=== PATIENT | female | born 1985 | race African-American/Black ===

== ENCOUNTER 2017-09-12 19:07 | Emergency (ER) | payer MEDICAID ==
[~2017-09-12] VITALS: Ht 170.2 cm; Wt 118.4 kg
[~2017-09-12 19:07] MED LIST: IBUPROFEN600 MG ORAL; MACROBID100 MG ORAL; REGLAN10 MG ORAL; TRAMADOL HCL50 MG ORAL; ZOFRAN4 MG ORAL
[2017-09-12] MEDS ORDERED: Dicyclomine HCl 10mg/5ml oral soln ORAL ONE (19:15)
[2017-09-12] MEDS ORDERED: Lidocaine 2% Visc 15ml soln ORAL ONE (19:15)
[2017-09-12] MEDS ORDERED: Mylanta II UD 30ml ORAL ONE (19:15)
[2017-09-12 19:20] VITALS: BP 134/89
[2017-09-12] MEDS ORDERED: PEPCID40 MG PO (19:33)
--- NOTE | 2017-09-12 19:34 | Emergency Room Report ---
History of Present Illness General Chief Complaint: Chest Pain Source: Patient Present Illness HPI 32-year-old female with no sig pmhx p/w abdominal pain 2 days. Patient states pain started gradually, localized to epigastric area, radiating up toward chest, burning in nature, intermittent. No relieving or exacerbating factors. Severity is5/ 10. States she has nausea but no vomiting. No diarrhea Denies fever, chills. No hx of abdominal surgeries. No hx of endoscopies/colonoscopies. Patient states that she has been taking Motrin almost every day for the past several months, for a low grade headache Allergies: Coded Allergies: PENICILLINS (Unverified Allergy, Mild, 07/31/15) DIPHENHYDRAMINE (Verified Allergy, Unknown, 08/09/15) METOCLOPRAMIDE (Verified Allergy, Unknown, 08/09/15) Patient History Past Medical History: see triage record Past Surgical History: none Pertinent Family History: none Last Menstrual Period: last month Reviewed Nursing Documentation: PMH: Agreed, PSxH: Agreed Nursing Documentation-PMH Past Medical History: No Stated History Hx Hypertension: No Hx Gastrointestinal Problems: No - Cholecystectomy in 2010 Review of Systems All Other Systems: negative except mentioned in HPI Physical Exam Vital Signs Date Time Temp Pulse Resp B/P (MAP) Pulse Ox O2 Delivery O2 Flow Rate FiO2 09/12/17 19:11 99.7 78 16 134/89 98 Room Air Sp02 EP Interpretation: reviewed, normal General Appearance: alert, GCS 15, non-toxic, mild distress Head: normocephalic, atraumatic Eyes: bilateral eye normal inspection, bilateral eye PERRL, bilateral eye EOMI ENT: normal ENT inspection, normal pharynx, normal voice, moist mucus membranes Neck: normal inspection, full range of motion, supple Respiratory: normal inspection, lungs clear, normal breath sounds, no respiratory distress, no retraction, no wheezing, speaking full sentences, chest symmetrical Cardiovascular #1: normal inspection, regular rate, rhythm, normal capillary refill Cardiovascular #2: 2+ radial (R), 2+ radial (L) Gastrointestinal: soft, non-distended, no guarding, other - mild epigastric tenderness noguarding Musculoskeletal: normal inspection, back normal, normal range of motion, non- tender Neurologic: normal inspection, alert, oriented x3, responsive, motor strength/ tone normal, sensory intact, normal gait, speech normal Psychiatric: normal inspection, judgement/insight normal, memory normal Skin: normal inspection, normal color, no rash, warm/dry, well hydrated, normal turgor Medical Decision Making Diagnostic Impression: Primary Impression: Epigastric abdominal pain Additional Impressions: NSAID induced gastritis Trichomonas infection ER Course 32-year-old female with epigastric abdominal pain radiating up towards chest, chronic Motrin user Differential Diagnosis: Likely Gastritis versus peptic ulcer disease, appendicitis, UTI/pyelo Patient has history of cholecystectomy At this time abdomen is soft nontender, not likely have acute intra-abdominal surgical pathology, will hold CT Plan: Basic labs, ua, ekg Pepcid, maalox, pain control, IVF ER course: Patient has remained stable during ED stay. Pain improved. Repeat abdominal exam is nontender. Tolerating PO +trichomonas, 2gm flagyl PO given in ED Disposition: Patient is to be discharged to home. Prescriptions given are Pepcid Patient is instructed to follow up with their primary care doctor within 5 days. Patient is instructed to follow up with associate pathologist in one week Strict return precautions discussed with patient such as fever, chills, worsening/severe abdominal pain, nausea, vomiting, black or bloody stools, which may indicate severe illness. Patient verbalizes understanding and agrees with plan. Please note that this Emergency Department Report was dictated using The [employer] websitenc manager technology software, occasionally this can lead to erroneous entry secondary to interpretation by the dictation equipment EKG Diagnostic Results EP Interpretation: Yes Rate: normal Rhythm: NSR ST Segments: T wave inversion noted in lead 3 ASA given to patient: No Rhythm Strip EP Interpretation: Yes Rate: 84 Rhythm: NSR, no PVCs, no ectopy Chest X-ray CXR: Ordered: Yes 1 view Indication: Chest pain EP interpretation: Yes Interpretation: No consolidation, no effusion, no PTX, no acute cardiopulmonary disease Impression: No acute disease Electronically signed by Juan M Davis MD Laboratory Tests Test 09/12/17 19:25 09/12/17 19:38 White Blood Count 8.7 K/UL (4.8-10.8) Red Blood Count 4.70 M/UL (4.20-5.40) Hemoglobin 12.1 G/DL (12.0-16.0) Hematocrit 39.0 % (37.0-47.0) Mean Corpuscular Volume 83 FL (80-99) Mean Corpuscular Hemoglobin 25.8 PG (27.0-31.0) L Mean Corpuscular Hemoglobin Concent 31.0 G/DL (32.0-36.0) L Red Cell Distribution Width 13.7 % (11.6-14.8) Platelet Count 327 K/UL (150-450) Mean Platelet Volume 6.4 FL (6.5-10.1) L Neutrophils (%) (Auto) 58.6 % (45.0-75.0) Lymphocytes (%) (Auto) 32.6 % (20.0-45.0) Monocytes (%) (Auto) 6.6 % (1.0-10.0) Eosinophils (%) (Auto) 1.4 % (0.0-3.0) Basophils (%) (Auto) 0.9 % (0.0-2.0) Sodium Level 141 MMOL/L (136-145) Potassium Level 3.7 MMOL/L (3.5-5.1) Chloride Level 105 MMOL/L (98-107) Carbon Dioxide Level 29 MMOL/L (21-32) Anion Gap 7 mmol/L (5-15) Blood Urea Nitrogen 13 mg/dL (7-18) Creatinine 1.0 MG/DL (0.55-1.30) Estimate Glomerular Filtration Rate > 60 mL/min (>60) Glucose Level 103 MG/DL (74-106) Calcium Level 9.0 MG/DL (8.5-10.1) Total Bilirubin 0.1 MG/DL (0.2-1.0) L Aspartate Amino Transferase (AST) 15 U/L (15-37) Alanine Aminotransferase (ALT) 19 U/L (12-78) Alkaline Phosphatase 103 U/L (46-116) Total Protein 7.0 G/DL (6.4-8.2) Albumin 2.8 G/DL (3.4-5.0) L Globulin 4.2 g/dL Albumin/Globulin Ratio 0.7 (1.0-2.7) L Lipase 137 U/L (73-393) Urine Color Pale yellow Urine Appearance Clear Urine pH 6.5 (4.5-8.0) Urine Specific [place] 1.015 (1.005-1.035) Urine Protein Negative (NEGATIVE) Urine Glucose (UA) Negative (NEGATIVE) Urine Ketones Negative (NEGATIVE) Urine Occult Blood Negative (NEGATIVE) Urine Nitrite Negative (NEGATIVE) Urine Bilirubin Negative (NEGATIVE) Urine Urobilinogen Normal MG/DL (0.0-1.0) Urine Leukocyte Esterase 3+ (NEGATIVE) H Urine RBC 2-4 /HPF (0 - 2) H Urine WBC 5-10 /HPF (0 - 2) H Urine Squamous Epithelial Cells Few /LPF (NONE/OCC) Urine Bacteria Moderate /HPF (NONE) H Urine Trichomonas Few /HPF (NONE) H Urine HCG, Qualitative Negative Last Vital Signs Date Time Temp Pulse Resp B/P (MAP) Pulse Ox O2 Delivery O2 Flow Rate FiO2 09/12/17 19:11 99.7 78 16 134/89 98 Room Air Disposition: HOME, SELF-CARE Condition: Improved Scripts Famotidine (PEPCID) 40 Mg Tablet 40 MG PO DAILY for 14 Days, #14 TAB 0 Refills Prov: Juan M Davis M.D. 09/12/17 Patient Instructions: Gastritis, Adult, [id number], Nonspecific Chest Pain Juan M Davis M.D. Sep 12, 2017 19:34
[2017-09-12 19:56] LABS: BASOPHILS % (AUTO) 0.9 % (0.0-2.0); EOSINOPHILS % (AUTO) 1.4 % (0.0-3.0); LYMPHOCYTES % (AUTO) 32.6 % (20.0-45.0); MEAN CORPUSCULAR HEMOGLOBIN 25.8 PG (27.0-31.0); MEAN CORPUSCULAR VOLUME 83 FL (80-99); MEAN PLATELET VOLUME 6.4 FL (6.5-10.1); MONOCYTES % (AUTO) 6.6 % (1.0-10.0); NEUTROPHILS % (AUTO) 58.6 % (45.0-75.0); PLATELET COUNT 327 K/UL (150-450); RED CELL DISTRIBUTION WIDTH 13.7 % (11.6-14.8); WHITE BLOOD COUNT 8.7 K/UL (4.8-10.8)
[2017-09-12 20:08] LABS: APPEARANCE,URINE CLEAR; KETONES,URINE NEGATIVE (NEGATIVE); LEUKOCYTE ESTERASE ,URINE 3+ (NEGATIVE); NITRITE,URINE NEGATIVE (NEGATIVE); PH,URINE 6.5 (4.5-8.0); PROTEIN,URINE NEGATIVE (NEGATIVE); UROBILINOGEN,URINE NORMAL MG/DL (0.0-1.0)
[2017-09-12 20:29] LABS: BACTERIA,URINE MODERATE /HPF; SQUAMOUS EPITHELIAL CELL,UR FEW /LPF (NONE/OCC); TRICHOMONAS,URINE FEW /HPF
[2017-09-12 20:32] LABS: ANION GAP 7 mmol/L (5-15); CARBON DIOXIDE 29 MMOL/L (21-32); CHLORIDE 105 MMOL/L (98-107); GLOMERULAR FILTRATION RATE > 60 mL/min (>60); POTASSIUM 3.7 MMOL/L (3.5-5.1); SODIUM 141 MMOL/L (136-145)
[2017-09-12 20:38] LABS: ALANINE AMINOTRANSFERASE 19 U/L (12-78); ALBUMIN/GLOBULIN RATIO 0.7 (1.0-2.7); ASPARTATE AMINO TRANSFERASE 15 U/L (15-37); LIPASE 137 U/L (73-393)
[2017-09-12 21:00] VITALS: BP 127/88
[2017-09-12] MEDS ORDERED: metroNIDAZOLE 500mg tab ORAL ONE (21:00)
--- NOTE | 2017-09-13 11:19 | Diagnostic Imaging Report ---
Indication: PAIN Technique: One view of the chest Comparison: none Findings: Lungs and pleural spaces are clear. Heart size is upper limits normal. Impression: No acute process
--- NOTE | 2017-09-14 18:28 | Cardiology Report ---
APPROVED REPORT EKG Measurement Heart [id number] HI [id number] Normal sinus rhythm Possible Anterior infarct, age undetermined Abnormal ECG
== END 2017-09-12 21:10 | disposition home or self-care (01) ==
LOC: EDBD 19:07 → EMR 19:15
DX: K29.70 Gastritis, unspecified, without bleeding (principal); A59.9 Trichomoniasis, unspecified; Z90.49 Acquired absence of other specified parts of digestive tract; Z88.8 Allergy status to other drugs, medicaments and biological substances
CPT/HCPCS: 36415; 71010; 80053; 81003; 81025; 83690; 85025; 87086; 93005; 96361; 96374; 96375; 99284; J2405; S0028

== ENCOUNTER 2018-08-18 09:13 | Emergency (ER) | payer MEDICAID ==
[~2018-08-18] VITALS: Ht 162.6 cm; Wt 90.7 kg
[~2018-08-18 09:13] MED LIST changes: +PEPCID40 MG PO
[2018-08-18 09:15] VITALS: BP 119/70
[2018-08-18] MEDS ORDERED: Morphine Sulfate 4mg/ml Inj (IV/IM USE ONLY) IVP ONE (09:30)
[2018-08-18 10:03] LABS: BASOPHILS % (AUTO) 0.8 % (0.0-2.0); EOSINOPHILS % (AUTO) 1.7 % (0.0-3.0); HEMATOCRIT 39.1 % (37.0-47.0); HEMOGLOBIN 12.8 G/DL (12.0-16.0); LYMPHOCYTES % (AUTO) 32.1 % (20.0-45.0); MEAN CORPUSCULAR VOLUME 80 FL (80-99); MONOCYTES % (AUTO) 6.1 % (1.0-10.0); NEUTROPHILS % (AUTO) 59.3 % (45.0-75.0); PLATELET COUNT 298 K/UL (150-450); RED BLOOD COUNT 4.86 M/UL (4.20-5.40); RED CELL DISTRIBUTION WIDTH 13.6 % (11.6-14.8); WHITE BLOOD COUNT 5.8 K/UL (4.8-10.8)
[2018-08-18 10:18] LABS: ANION GAP 7 mmol/L (5-15); BLOOD UREA NITROGEN 10 mg/dL (7-18); CALCIUM 9.3 MG/DL (8.5-10.1); CARBON DIOXIDE 28 MMOL/L (21-32); CHLORIDE 106 MMOL/L (98-107); POTASSIUM 3.4 MMOL/L (3.5-5.1); SODIUM 141 MMOL/L (136-145)
--- NOTE | 2018-08-18 10:21 | Emergency Room Report ---
History of Present Illness General Chief Complaint: Abdominal Pain Source: Patient, EMS Present Illness HPI Patient complains about severe epigastric pain. This began earlier today. She states been vomiting also. Pain is constant and burning. It's greater than 10/ 10. She's had this pain before but refuses to answer many questions. Pain "severe" refuses to give number. She's been vomiting intermittently for several days. Sig other is concerned if . Fidelina 2010 Renal stones Allergies: Coded Allergies: PENICILLINS (Unverified Allergy, Mild, 07/31/15) DIPHENHYDRAMINE (Verified Allergy, Unknown, 08/09/15) METOCLOPRAMIDE (Verified Allergy, Unknown, 08/09/15) Patient History Past Medical History: see triage record Past Surgical History: fidelina Social History: Reports: smoking Social History Narrative with sig other and daughter Last Menstrual Period: 08/03/18 Reviewed Nursing Documentation: PMH: Agreed; PSxH: Agreed Nursing Documentation-PMH Past Medical History: No History, Except For Hx Hypertension: No Hx Gastrointestinal Problems: No - Cholecystectomy in 2010, hx of kidney stone Review of Systems All Other Systems: negative except mentioned in HPI Physical Exam Vital Signs Date Time Temp Pulse Resp B/P (MAP) Pulse Ox O2 Delivery O2 Flow Rate FiO2 08/18/18 09:12 98.6 90 18 123/86 98 Room Air Sp02 EP Interpretation: reviewed, normal General Appearance: GCS 15, mild distress, obese Head: normocephalic Eyes: bilateral eye normal inspection, bilateral eye PERRL ENT: moist mucus membranes Neck: supple Respiratory: lungs clear, normal breath sounds Cardiovascular #1: regular rate, rhythm Cardiovascular #2: 2+ radial (R) Gastrointestinal: other - patient refuses to lay on back and is not allowing exam of abdomen Genitourinary: no CVA tenderness Musculoskeletal: back normal, normal range of motion Neurologic: alert, oriented x3, grossly normal Psychiatric: other - refusing exam due to pain Skin: normal inspection, warm/dry Medical Decision Making Diagnostic Impression: Primary Impression: Gastritis Qualified Codes: K29.00 - Acute gastritis without bleeding ER Course Patient with epigastric pain and vomiting. DDX: GItis, gastritis, GERD, pancreatitis amongst others. Post fidelina so doubt gall bladder problem. Evaluation with labs and films. Treatment with IV hydration and analgesics. She doubts , but will check. Difficult as not allowing exam. Refused CXR. Discussed and then allowed. Labs with normal WBC, H/H. CMP normal with min low K. UA clear with neg preg. CXR no free air, normal. Repeat exam improved. Now able to examine. Soft and no guarding. Discussed need for outpatient follow up. Patient stable for outpatient observation and treatment. Laboratory Tests Test 08/18/18 09:40 08/18/18 09:50 08/18/18 10:55 White Blood Count 5.8 K/UL (4.8-10.8) Red Blood Count 4.86 M/UL (4.20-5.40) Hemoglobin 12.8 G/DL (12.0-16.0) Hematocrit 39.1 % (37.0-47.0) Mean Corpuscular Volume 80 FL (80-99) Mean Corpuscular Hemoglobin 26.4 PG (27.0-31.0) L Mean Corpuscular Hemoglobin Concent 32.8 G/DL (32.0-36.0) Red Cell Distribution Width 13.6 % (11.6-14.8) Platelet Count 298 K/UL (150-450) Mean Platelet Volume 5.8 FL (6.5-10.1) L Neutrophils (%) (Auto) 59.3 % (45.0-75.0) Lymphocytes (%) (Auto) 32.1 % (20.0-45.0) Monocytes (%) (Auto) 6.1 % (1.0-10.0) Eosinophils (%) (Auto) 1.7 % (0.0-3.0) Basophils (%) (Auto) 0.8 % (0.0-2.0) Sodium Level 141 MMOL/L (136-145) Potassium Level 3.4 MMOL/L (3.5-5.1) L Chloride Level 106 MMOL/L (98-107) Carbon Dioxide Level 28 MMOL/L (21-32) Anion Gap 7 mmol/L (5-15) Blood Urea Nitrogen 10 mg/dL (7-18) Creatinine 1.0 MG/DL (0.55-1.30) Estimate Glomerular Filtration Rate > 60 mL/min (>60) Glucose Level 89 MG/DL (74-106) Calcium Level 9.3 MG/DL (8.5-10.1) Total Bilirubin 0.3 MG/DL (0.2-1.0) Aspartate Amino Transferase (AST) 19 U/L (15-37) Alanine Aminotransferase (ALT) 25 U/L (12-78) Alkaline Phosphatase 106 U/L (46-116) Total Protein 7.3 G/DL (6.4-8.2) Albumin 3.1 G/DL (3.4-5.0) L Globulin 4.2 g/dL Albumin/Globulin Ratio 0.7 (1.0-2.7) L Lipase 93 U/L (73-393) Prothrombin Time 10.5 SEC (9.30-11.50) Prothrombin Time INR 1.0 (0.9-1.1) PTT 29 SEC (23-33) Urine Color Pale yellow Urine Appearance Clear Urine pH 7 (4.5-8.0) Urine Specific [place] 1.005 (1.005-1.035) Urine Protein Negative (NEGATIVE) Urine Glucose (UA) Negative (NEGATIVE) Urine Ketones Negative (NEGATIVE) Urine Blood Negative (NEGATIVE) Urine Nitrite Negative (NEGATIVE) Urine Bilirubin Negative (NEGATIVE) Urine Urobilinogen Normal MG/DL (0.0-1.0) Urine Leukocyte Esterase Negative (NEGATIVE) Urine HCG, Qualitative Negative (NEGATIVE) Chest X-Ray Diagnostic Results Chest X-Ray Diagnostic Results : Chest X-Ray Ordered: Yes # of Views/Limited/Complete: 1 View Indication: Other Interpretation: no consolidation, no effusion, no pneumothorax Impression: No acute disease Electronically Signed by: Farhat Mccurdy MD Last Vital Signs Date Time Temp Pulse Resp B/P (MAP) Pulse Ox O2 Delivery O2 Flow Rate FiO2 08/18/18 13:52 98.9 72 18 119/70 100 Room Air Status: improved Disposition: HOME, SELF-CARE Condition: Improved Scripts Acetaminophen (Tylenol) 325 Mg Tablet 650 MG ORAL Q6H PRN for Prn Pain/Headache/Temp > 101, #20 TAB 0 Refills Prov: Farhat Mccurdy MD 08/18/18 Famotidine (PEPCID AC) 20 Mg Tablet 20 MG PO DAILY, #30 TAB Prov: Farhat Mccurdy MD 08/18/18 Ondansetron Odt* (ZOFRAN ODT*) 4 Mg Tab.rapdis 4 MG BC EVERY 8 HOURS, #10 TAB 0 Refills Prov: Farhat Mccurdy MD 08/18/18 Tramadol Hcl* (ULTRAM*) 50 Mg Tablet 50 MG ORAL Q6H PRN for For Pain, #12 TAB 0 Refills Prov: Farhat Mccurdy MD 08/18/18 Referrals: [facility]ERR[facility] (PCP) Farhat Mccurdy MD Aug 18, 2018 10:21
[2018-08-18 10:22] LABS: ALANINE AMINOTRANSFERASE 25 U/L (12-78); ALBUMIN 3.1 G/DL (3.4-5.0); ALBUMIN/GLOBULIN RATIO 0.7 (1.0-2.7); ALKALINE PHOSPHATASE 106 U/L (46-116); ASPARTATE AMINO TRANSFERASE 19 U/L (15-37); BILIRUBIN,TOTAL 0.3 MG/DL (0.2-1.0)
--- NOTE | 2018-08-18 10:55 | Diagnostic Imaging Report ---
Indication: Dyspnea Comparison: 09/12/2017 A single view chest radiograph was obtained. Findings: Cardiomediastinal appearance is within normal limits for age. The lungs are clear. Pulmonary vascularity is appropriate. The diaphragmatic contour is smooth and costophrenic angles are sharp. No pleural effusions are identified. The bones are unremarkable. Impression: No acute findings
[2018-08-18 11:30] LABS: APPEARANCE,URINE CLEAR; BILIRUBIN, URINE NEGATIVE (NEGATIVE); COLOR,URINE PALE YELLOW; GLUCOSE, URINE (UA) NEGATIVE (NEGATIVE); KETONES,URINE NEGATIVE (NEGATIVE); LEUKOCYTE ESTERASE ,URINE NEGATIVE (NEGATIVE); NITRITE,URINE NEGATIVE (NEGATIVE); PH,URINE 7 (4.5-8.0); PROTEIN,URINE NEGATIVE (NEGATIVE); UROBILINOGEN,URINE NORMAL MG/DL (0.0-1.0)
[2018-08-18 12:00] VITALS: BP 121/78
[2018-08-18] MEDS ORDERED: oxyCODONE HCL/Acetaminophen 5/325mg ORAL ONE (13:45)
[2018-08-18] MEDS ORDERED: TYLENOL325 MG ORAL (13:46)
[2018-08-18] MEDS ORDERED: ONDANSETRON ODT4 MG BC (13:46)
[2018-08-18] MEDS ORDERED: PEPCID AC20 M2 PO (13:46)
[2018-08-18] MEDS ORDERED: TRAMADOL HCL50 MG ORAL (13:46)
[2018-08-18 13:51] VITALS: BP 115/82
[2018-08-18 13:52] VITALS: BP 119/70
== END 2018-08-18 13:52 | disposition home or self-care (01) ==
LOC: EDBD 09:13 → EMR 09:22
DX: K29.70 Gastritis, unspecified, without bleeding (principal); Z88.0 Allergy status to penicillin; Z88.8 Allergy status to other drugs, medicaments and biological substances; Z90.49 Acquired absence of other specified parts of digestive tract
CPT/HCPCS: 36415; 71045; 80053; 81003; 81025; 83690; 85025; 85610; 85730; 96361; 96374; 96375; 99284; J2270; J2405; S0028

== ENCOUNTER 2018-09-01 21:23 | Emergency (ER) | payer MEDICAID ==
[~2018-09-01] VITALS: Ht 170.2 cm; Wt 119.7 kg
[~2018-09-01 21:23] MED LIST changes: +ONDANSETRON ODT4 MG BC; +PEPCID AC20 M2 PO; +TYLENOL325 MG ORAL
[2018-09-01 23:00] LABS: APPEARANCE,URINE CLEAR; BILIRUBIN, URINE NEGATIVE (NEGATIVE); GLUCOSE, URINE (UA) NEGATIVE (NEGATIVE); KETONES,URINE NEGATIVE (NEGATIVE); LEUKOCYTE ESTERASE ,URINE 3+ (NEGATIVE); NITRITE,URINE NEGATIVE (NEGATIVE); PH,URINE 6 (4.5-8.0); PROTEIN,URINE NEGATIVE (NEGATIVE); UROBILINOGEN,URINE NORMAL MG/DL (0.0-1.0)
[2018-09-01 23:00] LABS: BASOPHILS % (AUTO) 1.7 % (0.0-2.0); EOSINOPHILS % (AUTO) 2.3 % (0.0-3.0); HEMATOCRIT 38.7 % (37.0-47.0); HEMOGLOBIN 12.5 G/DL (12.0-16.0); MEAN CORPUSCULAR VOLUME 81 FL (80-99); MONOCYTES % (AUTO) 6.2 % (1.0-10.0); NEUTROPHILS % (AUTO) 56.8 % (45.0-75.0); PLATELET COUNT 295 K/UL (150-450); RED BLOOD COUNT 4.79 M/UL (4.20-5.40); RED CELL DISTRIBUTION WIDTH 13.4 % (11.6-14.8); WHITE BLOOD COUNT 8.4 K/UL (4.8-10.8)
[2018-09-01 23:02] LABS: COLOR,URINE YELLOW
[2018-09-01 23:04] LABS: ANION GAP 7 mmol/L (5-15); BLOOD UREA NITROGEN 11 mg/dL (7-18); CARBON DIOXIDE 28 MMOL/L (21-32); CHLORIDE 106 MMOL/L (98-107); POTASSIUM 3.6 MMOL/L (3.5-5.1); SODIUM 141 MMOL/L (136-145)
[2018-09-01 23:15] VITALS: BP 132/88
[2018-09-01] MEDS ORDERED: ZOFRAN4 MG ORAL (23:30)
[2018-09-01] MEDS ORDERED: LEVOFLOXACIN500 MG ORAL (23:30)
--- NOTE | 2018-09-01 23:31 | Emergency Room Report ---
History of Present Illness General Chief Complaint: Female Urogenital Problems Source: Patient Present Illness HPI Is a 33-year-old female with with no mass medical history. She presents with chief complaint of vomiting and coughing. She says she been sick on and off for a month. But the coughing started again in the last couple days. No fever chills but felt nauseous. Also with vaginal bleeding. Denies any other complaint. Pain is epigastric in nature. 7 out of 10. In. Nothing made it better. Nothing made it worse. Allergies: Coded Allergies: PENICILLINS (Unverified Allergy, Mild, 07/31/15) DIPHENHYDRAMINE (Verified Allergy, Unknown, 08/09/15) METOCLOPRAMIDE (Verified Allergy, Unknown, 08/09/15) Patient History Past Medical History: see triage record, old chart reviewed Past Surgical History: other Pertinent Family History: none Social History: Denies: smoking Last Menstrual Period: 08/03/18 Now: No : 1 Para: 0 Reviewed Nursing Documentation: PMH: Agreed; PSxH: Agreed Nursing Documentation-PMH Past Medical History: No History, Except For Hx Hypertension: No Hx Gastrointestinal Problems: No - Cholecystectomy in 2010, hx of kidney stone Review of Systems Eye: Denies: eye pain, blurred vision ENT: Denies: ear pain, nose congestion, throat swelling Respiratory: Reports: cough; Denies: shortness of breath Cardiovascular: Denies: chest pain, palpitations Gastrointestinal: Reports: nausea, vomiting; Denies: abdominal pain, diarrhea Musculoskeletal: Denies: back pain, joint pain Skin: Denies: rash Neurological: Denies: headache, numbness Endocrine: Denies: increased thirst, increased urine Hematologic/Lymphatic: Denies: easy bruising All Other Systems: negative except mentioned in HPI Physical Exam Vital Signs Date Time Temp Pulse Resp B/P (MAP) Pulse Ox O2 Delivery O2 Flow Rate FiO2 09/01/18 21:35 98.2 86 17 141/94 99 Room Air vitals normal Sp02 EP Interpretation: reviewed, normal General Appearance: well appearing, no apparent distress, alert Head: normocephalic, atraumatic Eyes: bilateral eye PERRL, bilateral eye EOMI ENT: hearing grossly normal, normal pharynx Neck: full range of motion, supple, no meningismus Respiratory: chest non-tender, lungs clear, normal breath sounds Cardiovascular #1: regular rate, rhythm, no murmur Gastrointestinal: normal bowel sounds, non tender, no mass, no organomegaly, no bruit, non-distended Musculoskeletal: back normal, gait/station normal, normal range of motion Psychiatric: mood/affect normal Skin: warm/dry Medical Decision Making Diagnostic Impression: Primary Impression: UTI (urinary tract infection) Qualified Codes: N30.00 - Acute cystitis without hematuria Additional Impressions: Vomiting Qualified Codes: R11.2 - Nausea with vomiting, unspecified Bronchitis ER Course Shunt with vomiting here. Better after Zofran. No evidence of dehydration. No evidence of acute abdomen. She's eating drinking here. Last Vital Signs Date Time Temp Pulse Resp B/P (MAP) Pulse Ox O2 Delivery O2 Flow Rate FiO2 09/01/18 21:35 98.2 86 17 141/94 99 Room Air Status: improved Disposition: HOME, SELF-CARE Condition: Stable Scripts Levofloxacin (LEVOFLOXACIN*) 500 Mg Tablet 500 MG ORAL DAILY, #7 TAB Prov: Cy Mayberry MD 09/01/18 Referrals: [facility]ERR[facility] (PCP) Patient Instructions: Urinary Tract Infection Additional Instructions: Follow-up with your doctor in 7 days. Return of worse. Cy Mayberry MD Sep 01, 2018 23:31
[2018-09-01 23:35] VITALS: BP 132/88
== END 2018-09-01 23:35 | disposition home or self-care (01) ==
LOC: EMR 22:38
DX: N30.00 Acute cystitis without hematuria (principal); R11.2 Nausea with vomiting, unspecified; J20.9 Acute bronchitis, unspecified; Z88.0 Allergy status to penicillin; Z88.8 Allergy status to other drugs, medicaments and biological substances; Z90.49 Acquired absence of other specified parts of digestive tract; Z87.442 Personal history of urinary calculi
CPT/HCPCS: 36415; 80048; 81001; 81025; 85025; 87086; 96360; 99284

== ENCOUNTER 2018-10-11 02:14 | Emergency (ER) | payer MEDICAID ==
[~2018-10-11] VITALS: Ht 170.2 cm; Wt 136.1 kg
[2018-10-11 02:14] VITALS: BP 135/91
[~2018-10-11 02:14] MED LIST changes: +LEVOFLOXACIN500 MG ORAL
--- NOTE | 2018-10-11 02:18 | Emergency Room Report ---
History of Present Illness General Chief Complaint: Laceration Source: Patient, Medical Record Present Illness HPI She is a 33-year-old female presented after increased left wrist pain. Patient states that she pushed a glass window. She reports having increased pain to the left wrist. She states that she noticed increased bleeding. Patient was brought in by EMS.The injury occurred just prior to arrival. She denies any numbness to her hand.Patient states that she is right-hand dominant. Patient states she works as a [employer]. Allergies: Coded Allergies: PENICILLINS (Unverified Allergy, Mild, 07/31/15) DIPHENHYDRAMINE (Verified Allergy, Unknown, 08/09/15) METOCLOPRAMIDE (Verified Allergy, Unknown, 08/09/15) Patient History Past Medical History: see triage record Last Menstrual Period: n/a Reviewed Nursing Documentation: PMH: Agreed; PSxH: Agreed Nursing Documentation-PMH Past Medical History: No History, Except For Hx Hypertension: No Hx Gastrointestinal Problems: No - Cholecystectomy in 2010, hx of kidney stone Review of Systems All Other Systems: negative except mentioned in HPI Physical Exam Vital Signs Date Time Temp Pulse Resp B/P (MAP) Pulse Ox O2 Delivery O2 Flow Rate FiO2 10/11/18 02:09 98.2 83 15 135/91 100 Room Air General Appearance: well appearing, no apparent distress, alert, GCS 15, non- toxic Head: normocephalic, atraumatic ENT: hearing grossly normal, normal voice Neck: full range of motion, supple Respiratory: lungs clear, no respiratory distress, speaking full sentences Cardiovascular #1: normal inspection Gastrointestinal: normal inspection Musculoskeletal: normal inspection, other - normal hand movement, no active bleeding Neurologic: normal inspection, alert, oriented x3, normal gait Psychiatric: mood/affect normal Skin: no rash, laceration - left volar wrist Procedures Laceration/Wound Repair Laceration/Wound Repair : Consent: Emergent Wound Location: upper extremity Wound's Depth, Shape: superficial Wound Length (cm): 2 Wound Explored: clean Irrigated w/ Saline (ccs): 20 Betadine Prep?: Yes Anesthesia: Lidocaine w/ Epi Volume Anesthetic (ccs): 4 Wound Repaired With: sutures Suture Size/Type: 4:0 Number of Sutures: 6 Patient Tolerated: Well Complications: None Medical Decision Making Diagnostic Impression: Primary Impression: Laceration of wrist ER Course Patient presented for laceration. Differential diagnoses included foreign body , nerve injury, arterial injury among others. X-ray imaging of the left wrist 2 views interpreted by me showed normal bony alignment without evident fracture or foreign body. Patient's injury is over her left radial artery however there does not appear to be any pulsatile bleeding. patient's wound was irrigated. The wound was closed with absorbable suture. Patient was advised to have wound check in 2-3 days. Labs Test 10/11/18 03:00 Urine HCG, Qualitative Negative (NEGATIVE) Last Vital Signs Date Time Temp Pulse Resp B/P (MAP) Pulse Ox O2 Delivery O2 Flow Rate FiO2 10/11/18 02:09 98.2 83 15 135/91 100 Room Air Status: improved Disposition: HOME, SELF-CARE Condition: Stable Scripts Bacitracin Zinc* (BACITRACIN ZINC*) 1 Each Packet 1 APPLIC TOPIC THREE TIMES A DAY, #20 PACKET Prov: Rafa Paz MD 10/11/18 Ibuprofen* (MOTRIN*) 600 Mg Tablet 600 MG ORAL Q8H PRN for For Pain, #30 TAB 0 Refills Prov: Rafa Paz MD 10/11/18 Rafa Paz MD Oct 11, 2018 02:18
[2018-10-11] MEDS ORDERED: NKM (02:25)
[2018-10-11] MEDS: Lidocaine 1% 10mg/ml/Epi 0.005mg/ml 30ml vial INJ ONE (02:41)
[2018-10-11] MEDS ORDERED: IBUPROFEN600 MG ORAL (03:19)
[2018-10-11] MEDS ORDERED: BACITRACIN ZIN1 EACH TOPIC (03:19)
[2018-10-11] MEDS: Bacitracin Oint UD TOPIC ONE (03:29)
[2018-10-11] MEDS: Tetanus/Diptheria/Pertussis Vaccine 0.5ml Syr IM ONE (03:31)
[2018-10-11 03:48] VITALS: BP 131/89
--- NOTE | 2018-10-11 05:42 | Diagnostic Imaging Report ---
EXAM: XR Left Wrist Complete, 3 or More Views CLINICAL HISTORY: FB TECHNIQUE: Frontal, lateral and oblique views of the left wrist. COMPARISON: No relevant prior studies available. FINDINGS: Bones/joints: Unremarkable. No acute fracture. No dislocation. Soft tissues: No radiopaque foreign object. IMPRESSION: No radiopaque foreign object
== END 2018-10-11 03:48 | disposition home or self-care (01) ==
LOC: EDBD 02:14 → EMR 02:24
DX: S61.512A Laceration without foreign body of left wrist, initial encounter (principal); W25.XXXA Contact with sharp glass, initial encounter; Y92.89 Other specified places as the place of occurrence of the external cause; Z88.0 Allergy status to penicillin; Z88.8 Allergy status to other drugs, medicaments and biological substances; Z23 Encounter for immunization
CPT/HCPCS: 12001; 73100; 81025; 90471; 90715; 99283; Z7502

== ENCOUNTER 2019-07-13 12:57 | Emergency (ER) | payer MEDICAID ==
[~2019-07-13] VITALS: Ht 167.6 cm; Wt 104.3 kg
[~2019-07-13 12:57] MED LIST changes: +BACITRACIN ZIN1 EACH TOPIC; +NKM
[2019-07-13] MEDS ORDERED: Isovue-300 100ml vial INJ PRN (13:00)
[2019-07-13] MEDS ORDERED: Morphine Sulfate 2mg/ml Inj(IV/IM USE ONLY) IVP ONE (13:15)
--- NOTE | 2019-07-13 13:30 | NUR ---
ED Nurse Note: Patient was brought in by [id number]. Patient complaining of right lower quadrant pain. Patinet stated that shes nauseated but no vomiting. Abdomen soft with no tenderness noted. No distention noted. Bowel sounds presents in all quadrants. Pain when palpating. Bowel sounds present in all quadrant.
--- NOTE | 2019-07-13 13:40 | NUR ---
ED Nurse Note: Patient unable to provide urine sample and ok to use straight catheter at this time. RN performed straight I&O catheter and collected yellow urine. No visible blood noted. Patient tolerated the procedure without difficulty. Provided comfort measure. Bed in lowest position.
[2019-07-13 13:42] LABS: BASOPHILS % (AUTO) 1.3 % (0.0-2.0); HEMATOCRIT 40.1 % (37.0-47.0); HEMOGLOBIN 12.7 G/DL (12.0-16.0); LYMPHOCYTES % (AUTO) 40.4 % (20.0-45.0); MEAN CORPUSCULAR VOLUME 82 FL (80-99); MONOCYTES % (AUTO) 6.4 % (1.0-10.0); PLATELET COUNT 310 K/UL (150-450); RED BLOOD COUNT 4.86 M/UL (4.20-5.40); RED CELL DISTRIBUTION WIDTH 14.2 % (11.6-14.8)
[2019-07-13 13:48] LABS: APPEARANCE,URINE CLEAR; BILIRUBIN, URINE NEGATIVE (NEGATIVE); COLOR,URINE PALE YELLOW; GLUCOSE, URINE (UA) NEGATIVE (NEGATIVE); KETONES,URINE NEGATIVE (NEGATIVE); LEUKOCYTE ESTERASE ,URINE NEGATIVE (NEGATIVE); NITRITE,URINE NEGATIVE (NEGATIVE); PH,URINE 8 (4.5-8.0); PROTEIN,URINE NEGATIVE (NEGATIVE); UROBILINOGEN,URINE NORMAL MG/DL (0.0-1.0)
[2019-07-13] MEDS ORDERED: ACYCLOVIR400 MG ORAL (13:49)
--- NOTE | 2019-07-13 13:50 | NUR ---
ER DISCHARGE NOTE: Patient is cleared to be discharged per ERMD, pt is aox4, on room air, with stable vital signs. pt was given dc and prescription instructions, pt was able to verbalize understanding, pt id band and iv site removed without complications. pt is able to ambulate with steady gait. pt took all belongings.
[2019-07-13 13:54] LABS: ALANINE AMINOTRANSFERASE 18 U/L (12-78); ALBUMIN 3.1 G/DL (3.4-5.0); ALBUMIN/GLOBULIN RATIO 0.8 (1.0-2.7); ALKALINE PHOSPHATASE 101 U/L (46-116); ANION GAP 6 mmol/L (5-15); ASPARTATE AMINO TRANSFERASE 24 U/L (15-37); BILIRUBIN,TOTAL 0.5 MG/DL (0.2-1.0); BLOOD UREA NITROGEN 9 mg/dL (7-18); CALCIUM 9.1 MG/DL (8.5-10.1); CARBON DIOXIDE 29 MMOL/L (21-32); CHLORIDE 107 MMOL/L (98-107); CREATININE 0.8 MG/DL (0.55-1.30); SODIUM 142 MMOL/L (136-145)
[2019-07-13 13:57] LABS: POTASSIUM 4.1 MMOL/L (3.5-5.1)
--- NOTE | 2019-07-13 14:12 | NUR ---
ED Nurse Note: Patient taken to CT scan in wheelchair.
--- NOTE | 2019-07-13 14:28 | NUR ---
ED Nurse Note: Patient returned from CT scan. Patient in bed, bed in lowest position. IV site to left hand remained intact without swelling, redness or pain.
--- NOTE | 2019-07-13 14:50 | Diagnostic Imaging Report ---
Indication: Chest pain Technique: One view of the chest Comparison: 08/18/2018 Findings: Lungs and pleural spaces are clear. Heart size is normal. No significant change Impression: No acute process
--- NOTE | 2019-07-13 15:29 | Diagnostic Imaging Report ---
Clinical Indication: Abdominal pain Technique: No oral contrast utilized, per emergency room physician request IV administration nonionic contrast. Venous phase spiral acquisition obtained through the abdomen and pelvis. Multiplanar reconstructions were generated. Total dose length product 2026 mGycm. CTDIvol(s) 34 mGy. Dose reduction achieved using automated exposure control Comparison: 07/26/2015 Findings: There is otherwise limits evaluation. The appendix is not definitely visualized, but no findings to suggest acute appendicitis are evident. No evidence of diverticulosis or diverticulitis. No small bowel distention. No free or loculated intraperitoneal gas or fluid. Distal esophagus, stomach, duodenum are unremarkable. There is evidence of prior cholecystectomy. The liver, pancreas, spleen, adrenals, kidneys are unremarkable. No pelvic mass or adenopathy. Minimal linear scarring is seen at the left lung base. The bones are unremarkable. Impression: No definite acute or significant abnormality Evidence of prior cholecystectomy The CT scanner at [facility] is accredited by the [employer] and the scans are performed using protocols designed to limit radiation exposure to as low as reasonably achievable to attain images of sufficient resolution adequate for diagnostic evaluation.
--- NOTE | 2019-07-13 15:37 | Emergency Room Report ---
History of Present Illness General Chief Complaint: Abdominal Pain Source: Patient Present Illness HPI 34-year-old female with no significant past medical history brought in by paramedics, crying, complaining of a 10 out of 10 right lower quadrant pain without radiation. Patient reports being nauseated however denies vomiting, diarrhea, blood in her stool, fever and chills. Patient reports that she has been taking Tylenol today with minimal relief. Patient reports the pain started while she was resting. Denies any urinary symptoms, vaginal discharge. Patient reports that her last menstrual period was 2 weeks ago and regular. Patient does not allow me to press on her abdomen at the beginning and I had to convince her that we need to do physical exam. Patient has her boyfriend at bedside. Her boyfriend continues to ask repeatedly what are the possibilities in terms of diagnosis of her however the boyfriend leaves before labs and CT scan results are ready. Patient denies chest pain, shortness of breath, palpitation, and other associated symptoms. Allergies: Coded Allergies: PENICILLINS (Unverified Allergy, Mild, 07/31/15) DIPHENHYDRAMINE (Verified Allergy, Unknown, 08/09/15) METOCLOPRAMIDE (Verified Allergy, Unknown, 08/09/15) Patient History Past Medical History: see triage record Past Surgical History: unable to obtain Pertinent Family History: none Now: No Immunizations: UTD Reviewed Nursing Documentation: PMH: Agreed; PSxH: Agreed Nursing Documentation-PMH Past Medical History: No History, Except For Hx Hypertension: No Hx Gastrointestinal Problems: No - Cholecystectomy in 2010, hx of kidney stone Review of Systems All Other Systems: negative except mentioned in HPI Physical Exam Vital Signs Date Time Temp Pulse Resp B/P (MAP) Pulse Ox O2 Delivery O2 Flow Rate FiO2 07/13/19 12:45 98.4 96 18 155/74 (101) 98 Room Air Sp02 EP Interpretation: reviewed, normal General Appearance: no apparent distress, alert, GCS 15, non-toxic Head: normocephalic, atraumatic Eyes: bilateral eye normal inspection, bilateral eye PERRL ENT: hearing grossly normal, normal pharynx, no angioedema, normal voice Neck: full range of motion, thyroid normal, supple/symm/no masses Respiratory: chest non-tender, lungs clear, normal breath sounds, no rhonchi, no wheezing, speaking full sentences Cardiovascular #1: normal inspection, normal peripheral pulses, regular rate, rhythm, no edema, no murmur Gastrointestinal: normal bowel sounds, non tender, soft, no mass, no organomegaly, no peritonitis, no bruit, no hernia, no pulsatile mass, no rebound , guarding - RLQ, but Mcburny's and rovsings neg Rectal: normal exam Genitourinary: normal inspection, no CVA tenderness Musculoskeletal: back normal, gait/station normal, normal range of motion, non- tender, no calf tenderness, pelvis stable Neurologic: alert, oriented x3, responsive, motor strength/tone normal, sensory intact, speech normal Psychiatric: judgement/insight normal, memory normal, mood/affect normal, no suicidal/homicidal ideation Skin: no rash Lymphatic: no adenopathy Medical Decision Making PA Attestation All my diagnosis and treatment plans were reviewed ad discussed with my supervising physician Dr. Paz Diagnostic Impression: Primary Impression: Acute abdominal pain ER Course 34-year-old female with no significant past medical history brought in by paramedics, crying, complaining of a 10 out of 10 right lower quadrant pain without radiation. Patient reports being nauseated however denies vomiting, diarrhea, blood in her stool, fever and chills. Patient reports that she has been taking Tylenol today with minimal relief. Patient reports the pain started while she was resting. Denies any urinary symptoms, vaginal discharge. Patient reports that her last menstrual period was 2 weeks ago and regular. Patient does not allow me to press on her abdomen at the beginning and I had to convince her that we need to do physical exam. Patient has her boyfriend at bedside. Her boyfriend continues to ask repeatedly what are the possibilities in terms of diagnosis of her however the boyfriend leaves before labs and CT scan results are ready. Patient denies chest pain, shortness of breath, palpitation, and other associated symptoms. Ddx considered but are not limited to: appendicitis, cholecystis, gastritis, gastroenteritis, UTI, pyelonephritis, SBO, diverticulitis, influenza with GI manifestation, MA, complication with Vital signs: are WNL, pt. is afebrile H&PE are most consistent with: Acute abdominal pain, drug-seeking behavior ORDERS: abdominal CT, abdominal pain set, EKG, Tylenol, Zofran, omeprazole ED INTERVENTIONS: NS bolus, morphine, Zofran, DISCHARGE: At this time pt. is stable for d/c to home. Will provide printed patient care instructions, and any necessary prescriptions. Care plan and follow up instructions have been discussed with the patient prior to discharge. After informed patient that her CT scan was normal she started arguing that the pain started after being sexually active which she did not relay that information any. Patient then repeatedly asked for something stronger than Tylenol was told that she is not going to get any narcotics she started smoking herself and in no distress and not eliciting any pain. Drug-seeking behavior was observed. Also patient to follow-up with primary care provider EKG Diagnostic Results Rate: normal Rhythm: NSR ST Segments: no acute changes Chest X-Ray Diagnostic Results Chest X-Ray Diagnostic Results : Chest X-Ray Ordered: Yes # of Views/Limited/Complete: 1 View Indication: Other EP Interpretation: Yes PA Xray: Interpretation reviewed, by supervising MD, and agrees with findings. Interpretation: no consolidation, no effusion, no pneumothorax Impression: No acute disease Electronically Signed by: Rolan Stanford PA-C CT/MRI/US Diagnostic Results CT/MRI/US Diagnostic Results : Imaging Test Ordered: Abdominal CT scan with contrast Impression Normal limits Last Vital Signs Date Time Temp Pulse Resp B/P (MAP) Pulse Ox O2 Delivery O2 Flow Rate FiO2 07/13/19 12:45 98.4 96 18 155/74 (101) 98 Room Air Disposition: HOME, SELF-CARE Condition: Stable Scripts Acetaminophen* (TYLENOL EXTRA STRENGTH*) 500 Mg Tablet 500 MG ORAL Q8H PRN for Prn Headache/Temp > 101, #30 TAB 0 Refills Prov: Rolan Good 07/13/19 Omeprazole (OMEPRAZOLE) 20 Mg Tablet. 20 MG ORAL DAILY, #20 TAB Prov: Rolan Good 07/13/19 Ondansetron (Zofran) 4 Mg Tablet 4 MG ORAL Q6H PRN for Nausea & Vomiting, #10 TAB Prov: Rolan Good 07/13/19 Referrals: NON PHYSICIAN (PCP) Patient Instructions: Abdominal Pain, Adult Additional Instructions: At this time no signs of acute condition noted in terms of inflammation or infection of your appendix as well as other internal organ abnormalities. Labs and vital signs are within normal limits. Make sure you increase your oral hydration avoid eating spicy and acidic food. Follow-up with your primary care provider. Rolan Good Jul 13, 2019 15:37
[2019-07-13] MEDS ORDERED: ZOFRAN4 M1 ORAL (15:38)
[2019-07-13] MEDS ORDERED: OMEPRAZOLE20 M3 ORAL (15:38)
[2019-07-13] MEDS ORDERED: TYLENOL EXTRA500 MG ORAL (15:38)
[2019-07-13 15:50] VITALS: BP 126/86
[2019-07-13 16:28] VITALS: BP 126/86
== END 2019-07-13 15:50 | disposition home or self-care (01) ==
LOC: EDBD 12:57 → EMR 13:22
DX: R10.31 Right lower quadrant pain (principal); Z90.49 Acquired absence of other specified parts of digestive tract; Z87.442 Personal history of urinary calculi; Z88.0 Allergy status to penicillin; Z88.8 Allergy status to other drugs, medicaments and biological substances
CPT/HCPCS: 36415; 71045; 74177; 80053; 80307; 80329; 81003; 81025; 83690; 84484; 85025; 85610; 85730; 86850; 86900; 86901; 93005; 96361; 96374; 96375; J2270; J2405; Q9967; S0028; Z7502; 99284